=== PATIENT | female | born 2000 | race Caucasian/White ===

== ENCOUNTER 2023-07-15 04:18 | Inpatient (IN) ==
[2023-07-15] MEDS ORDERED: LIDOCAINE 1% LOCAL 20 ML VIAL INFIL PRN (05:02)
[2023-07-15] MEDS ORDERED: OXYTOCIN 30 UNITS/NSS 30 UNITS/500 ML BAG IV PRN ×3 (05:02→11:02)
[2023-07-15] MEDS ORDERED: ceFAZolin 2000MG 2,000 MG/15 ML SYR IV STA (05:10)
--- NOTE | 2023-07-15 05:20 | History & Physical Report ---
Date of Service July 15, 2023 Assessment & Plan (1) Supervision of normal intrauterine in primigravida: Plan: IUP at term with SPROM for clear fluid and spontaneous onset of labor GBS (+) amoxicillin causes hives so will use Ancef instead for prophylaxis epidural analgesia once labs are resulted anticipate vaginal Admission and Anticipated Discharge Date Admission Date: July 15, 2023 History of Present Illness Primary Care Provider: Roxie Ward Ana Paula Patient is a 22 yo female EDC [birth year] who presents in with SPROM for clear fluid and spontaneous onset of labor. GBS (+) otherwise uncomplicated. Allergies Allergy/AdvReac Type Severity Reaction Status Date / Time amoxicillin Allergy Hives Verified 07/12/23 09:48 Home Medications Medication Instructions Recorded Confirmed Type escitalopram oxalate 20 mg tablet 20 mg PO DAILY 11/28/22 07/15/23 History (Lexapro) vitamin with calcium 1 tab PO DAILY 03/06/23 07/15/23 History no.72-iron 27 mg-folic acid 1 mg tablet (WesTab Plus) ferrous sulfate 325 mg (65 mg 325 mg PO DAILY 07/14/23 07/15/23 History iron) tablet (Iron (ferrous sulfate)) Patient History Medical History Anxiety Depression Family History Father Cancer Social History Smoking Status: Never smoker Second Hand Exposure: No; Do You Dip or Chew Tobacco: No; Hx Alcohol Use: No Hx Substance Use: No Preferred Language: Yakut Communication Ability: Effective Supervisor Lime Required: No Beliefs That Will Affect Care: None marital status: Single marital status details: Jada MOM [phone] Current Living Situation: Significant Other Current Living Situation Comment: Lives with Boyfriend and one dog. current occupational status: employed current occupation: Auto Service Mechanic Other Information That Helps Us Care for You: No Feels Safe at Home: Yes Safety Concerns: Feels Safe At This Time Assistive Devices: None and Glasses Review of Systems All systems reviewed & are unremarkable except as noted in HPI & below Physical Exam Constitutional: WD/WN, vitals as above Psychiatric: A+Ox3, euthymic affect Genitourinary: OB Exam Abdomen: + vertex, + estimated weight (7-8 pounds) and + regular contractions Manual OB Exam: + cervical dilation 4 cm (4-5cm), + cervical effacement 100%, + station -1 and + amniotic fluid clear OB Exam Monitor Tracing: + external FHT monitor used, + external uterine monitor used, + category I, + normal FHT variability and + early decelerations present Results & Data Vital Signs (Past 12 Hours) Vital Signs Temp Pulse BP Pulse Ox 07/15/23 05:13 78 100 07/15/23 05:08 84 100 07/15/23 04:46 98.1 F 79 125/60 07/15/23 04:45 79 125/60 Code Status & VTE Plan VTE Prophylaxis Plan VTE Prophylaxis will be ordered: No Coding Level of Care Code None Diagnoses Supervision of normal intrauterine in primigravida Z34.00
[2023-07-15] MEDS: LACTATED RINGER'S 1,000 ML IV PRN ×2 (05:33→07:45)
[2023-07-15] MEDS ORDERED: BUPIVACAINE 0.25% PF 30 ML VIAL ONE (05:38)
[2023-07-15] MEDS ORDERED: SODIUM CHLORIDE 0.9% PF INJ 10 ML VIAL ONE (05:38)
[2023-07-15] MEDS ORDERED: fentaNYL citrate PF 100 MCG/2 ML VIAL ONE (05:38)
[2023-07-15] MEDS ORDERED: ePHEDrine sulfate 50 MG/ML AMP ONE (05:38)
[2023-07-15] MEDS ORDERED: LIDOCAINE 2%/EPINEPHRINE 1:200,000 20 ML PF ONE (05:38)
[2023-07-15] MEDS ORDERED: fentANYL 2 MCG/ML BUPIVacaine 0.125%-NSS 100ML BAG ONE (05:38)
[2023-07-15 05:52] LABS: Hematocrit (blood only) 34.6 % (37.0-47.0); Hemoglobin 11.5 g/dl (12.0-16.0); Mean Corpuscular Hemoglobin 26.1 pg (25.0-34.0); Mean Corpuscular Hgb Conc 33.2 g/dL (32.0-36.0); Mean Corpuscular Volume 78.6 fL (80.0-100.0); Mean Platelet Volume 9.8 fL (9.4-12.4); Platelet Count 233 K/uL (130-400); RDW Coefficient of Variation 14.2 % (11.5-14.5); RDW Standard Deviation 40.5 fL (36.4-46.3); White Blood Count 15.22 K/ul (4.8-10.8)
[2023-07-15] MEDS ORDERED: ePHEDrine sulfate 50 MG/ML AMP IV PRN (06:36)
[2023-07-15] MEDS ORDERED: fentANYL 2 MCG/ML BUPIVacaine 0.125%-NSS 100ML BAG EPI PRN (06:36)
[2023-07-15] MEDS ORDERED: BUPIVACAINE 0.25% PF 30 ML VIAL EPI STA (06:36)
[2023-07-15] MEDS ORDERED: fentaNYL citrate PF 100 MCG/2 ML VIAL EPI STA (06:36)
[2023-07-15] MEDS ORDERED: BUPIVACAINE 0.25% PF 30 ML VIAL EPI PRN (06:36)
[2023-07-15] MEDS ORDERED: SODIUM CHLORIDE 0.9% PF INJ 10 ML VIAL EPI PRN (06:36)
[2023-07-15] MEDS ORDERED: ROPIVACAINE 0.5% PF 5 MG/ML 20 ML VIAL EPI PRN (06:36)
[2023-07-15] MEDS ORDERED: NALBUPHINE HCL 5 MG in SYRINGE 0 ML IV PRN (06:36)
[2023-07-15] MEDS ORDERED: diphenhydrAMINE 50 MG/ML VIAL IV PRN (06:36)
[2023-07-15] MEDS ORDERED: NALOXONE HCL 0.4 MG/1 ML VIAL/CARP IV PRN (06:36)
[2023-07-15] MEDS ORDERED: LIDOCAINE 2% MPF LOCAL 5 ML VIAL EPI PRN (06:36)
[2023-07-15] MEDS ORDERED: NALOXONE HCL 1 MG in SODIUM CHLORIDE 0.9% 1,000 ML IV PRN (06:36)
[2023-07-15] MEDS ORDERED: LIDOCAINE 2%/EPINEPHRINE 1:200,000 20 ML PF EPI STA (06:36)
[2023-07-15] MEDS ORDERED: SODIUM CHLORIDE 0.9% PF INJ 10 ML VIAL EPI STA (06:36)
[2023-07-15] MEDS ORDERED: fentaNYL citrate PF 100 MCG/2 ML VIAL EPI PRN (06:36)
--- NOTE | 2023-07-15 06:36 | Anesthesiology Consultation ---
Date of Service July 15, 2023 Assessment & Plan Chart Review Chart Review: Acceptable Risk for Labor Epidural Consults Requested none History Height/Weight Height: 5 ft 7 in Weight: 85.275 kg Allergies Allergy/AdvReac Type Severity Reaction Status Date / Time amoxicillin Allergy Hives Verified 07/12/23 09:48 Medications Home Medications Medication Instructions Recorded Confirmed Last Taken escitalopram oxalate 20 mg tablet 20 mg PO DAILY 11/28/22 07/15/23 07/14/23 (Lexapro) vitamin with calcium 1 tab PO DAILY 03/06/23 07/15/23 07/13/23 no.72-iron 27 mg-folic acid 1 mg tablet (WesTab Plus) ferrous sulfate 325 mg (65 mg 325 mg PO DAILY 07/14/23 07/15/23 07/11/23 iron) tablet (Iron (ferrous sulfate)) Active Medications Generic Name Dose Route Start Last Admin Trade Name Freq PRN Reason Stop Dose Admin Lactated Ringer's 1,000 mls @ 125 mls/hr 07/15/23 05:02 07/15/23 05:33 Lr IV 07/17/23 05:01 999 mls/hr .Q8H PRN Administration L&D Protocol Protocol Past Medical History Medical History Anxiety Depression Past Family History Family History Father Cancer Social History Smoking Status: Never smoker Do You Dip or Chew Tobacco: No Hx Alcohol Use: No Hx Substance Use: No substance use type: does not use Physical Exam Vital Signs Last Vital Signs Temp 36.7 C 07/15/23 04:46 Pulse 80 07/15/23 06:33 BP 113/57 L 07/15/23 06:33 Pulse Ox 100 07/15/23 06:33 Constitutional WD/WN, vitals as above Psychiatric A+Ox3, euthymic affect Genitourinary OB Exam Abdomen: + vertex, + estimated weight (7-8 pounds) and + regular contractions Manual OB Exam: + cervical dilation + 4 cm (4-5cm), + cervical effacement + 100%, + station + -1 and + amniotic fluid + clear OB Exam Monitor Tracing: + external FHT monitor used, + external uterine monitor used, + category I, + normal FHT variability and + early decelerations present Testing Laboratory Results 07/15/23 05:19
--- NOTE | 2023-07-15 11:00 | Delivery Summary ---
Vaginal Delivery Summary Date of Service July 15, 2023 Vaginal Delivery Summary and 2nd Degree LAC Patient is a 22-year-old 1 P0 female who presented with spontaneous rupture of membranes and then spontaneous onset of contractions. She requested epidural analgesia which was effective. Initially the amniotic fluid was clear and then became moderate meconium stained. She progressed to full dilation with Pitocin augmentation. She pushed effectively over intact perineum for delivery of a viable male infant. During the pushing phase there were episodes of bradycardia to 80 to 90 bpm. After the head was delivered the posterior arm then followed by the anterior shoulder. The rest the infant delivered easily and was placed on the mother's abdomen for further attention and drying. After 1 minute the cord was clamped and cut. He initially had been vigorous but was then taken to the baby bed for further evaluation. After cord blood was obtained the placenta was expressed with a three-vessel cord. Right after the head was delivered there was a small amount of port wine colored fluid. But inspection of the placenta showed no signs of abruption. bleeding was controlled with dilute Pitocin and fundal massage. A second-degree perineal laceration was repaired with 3-0 chromic in the usual fashion. Bilateral superficial labial tears were not bleeding and therefore not repaired. Estimated blood loss was 200 cc. The infant was taken to the nursery for further evaluation and supplemental oxygen. [facility] [place] Vaginal Delivery Charge Delivery Type Details: and 2nd Degree LAC
[2023-07-15] MEDS ORDERED: HYDROCORTISONE ACETATE 25 MG SUPP PR PRN (11:02)
[2023-07-15] MEDS ORDERED: oxyCODONE/ACETAMINOPHEN 5mg/325mg TAB PO PRN (11:02)
[2023-07-15] MEDS ORDERED: BENZOCAINE 20% SPRY 85 APPLN/85 GM CAN EXT PRN (11:02)
[2023-07-15] MEDS ORDERED: DIPHTHERIA/TETANUS/PERTUSSIS Vaccine (Tdap, Age 7+yrs) 0.5mL SYR/VL IM ONE (11:02)
[2023-07-15] MEDS ORDERED: bisacodyL 10 MG SUPP PR PRN (11:02)
[2023-07-15] MEDS ORDERED: ACETAMINOPHEN 325 MG TAB PO PRN (11:02)
[2023-07-15] MEDS ORDERED: ceFAZolin 1000MG 1,000 MG/7.5 ML SYR IV PRN (12:05)
--- NOTE | 2023-07-15 12:45 | Anesthesia Procedure Note ---
Date of Service July 15, 2023 Anesthesia Post Epidural Note Vital Signs Vital Signs: Temp Pulse Resp BP Pulse Ox 37.4 C 125 H 18 107/58 L 98 07/15/23 10:45 07/15/23 12:30 07/15/23 11:30 07/15/23 12:30 07/15/23 10:49 Pain Intensity Lower Medial Abdomen: Pain Intensity: 0 Notes Mental Status: alert / awake / arousable and participated in evaluation Nausea / Vomiting: adequately controlled Pain: adequately controlled Airway Patency, RR, SpO2: stable & adequate BP & HR: stable & adequate Hydration State: stable & adequate Neuraxial Anesthesia: was administered and sensory block is resolving Anesthetic Complications: no major complications apparent Epidural: Removed without complications and With tip intact
[2023-07-15] MEDS: IBUPROFEN 600 MG TAB PO PRN (17:11)
[2023-07-15] MEDS: DOCUSATE SODIUM 100 MG CAP PO SCH (21:23)
[2023-07-16] MEDS: IBUPROFEN 600 MG TAB PO PRN ×3 (02:39→20:37)
[2023-07-16 06:35] LABS: Hematocrit (blood only) 29.5 % (37.0-47.0); Hemoglobin 9.4 g/dl (12.0-16.0); Mean Corpuscular Hgb Conc 31.9 g/dL (32.0-36.0); Mean Corpuscular Volume 81.7 fL (80.0-100.0); Mean Platelet Volume 9.9 fL (9.4-12.4); Platelet Count 194 K/uL (130-400); RDW Coefficient of Variation 14.6 % (11.5-14.5); RDW Standard Deviation 42.5 fL (36.4-46.3); Red Blood Count 3.61 M/uL (4.20-5.40); White Blood Count 12.55 K/ul (4.8-10.8)
--- NOTE | 2023-07-16 07:38 | Obstetrical Progress Note ---
Date of Service July 16, 2023 Assessment & Plan (1) Encounter for care and examination after delivery: satisfactory course continue current care plan Subjective Ambulation: ambulating normally Voiding: no voiding problems Passing Gas:: Yes Diet Tolerance:: regular diet Lochia:: Small Feeding Type:: breast feeding Review of Systems All systems reviewed & are unremarkable except as noted in HPI & below Physical Exam Constitutional WD/WN, vitals as above Psychiatric A+Ox3, euthymic affect Genitourinary OB Exam Abdomen: + fundal height Fundus: + firm and + relation to umbilicus (at U) Results & Data Vital Signs (Past 12 Hours) Vital Signs Temp Pulse Resp BP Pulse Ox O2 Del Method 07/16/23 04:30 97.7 F 68 16 98/66 L 99 Room Air 07/16/23 00:00 97.7 F 82 18 101/67 97 Room Air 07/15/23 20:45 97.7 F 86 18 104/69 98 Room Air
[2023-07-16 08:21] VITALS: O2SAT 98
[2023-07-16] MEDS: ESCITALOPRAM OXALATE 20 MG TAB PO SCH (09:33)
[2023-07-16] MEDS: PRENATAL VITAMIN 1 TAB PO SCH (09:33)
[2023-07-16] MEDS: DOCUSATE SODIUM 100 MG CAP PO SCH ×2 (09:33→20:37)
[2023-07-16] MEDS ORDERED: bisacodyL 5 MG TABEC PO SCH (20:00)
[2023-07-16 23:45] VITALS: RESP 16; TEMP 97.7
[2023-07-17 06:08] LABS: Hematocrit (blood only) 27.8 % (37.0-47.0)
--- NOTE | 2023-07-17 07:32 | Obstetrical Progress Note ---
Date of Service July 17, 2023 Assessment & Plan (1) Encounter for care and examination after delivery: Day #:: 2 Subjective Ambulation: ambulating normally Voiding: no voiding problems Passing Gas:: Yes Diet Tolerance:: regular diet Lochia:: Small Feeding Type:: breast feeding Doing well. Physical Exam Constitutional WD/WN, vitals as above Cardiovascular Extremities: no calf tenderness and no edema Gastrointestinal (Abdomen) soft, nt, nd ff/nt at u Psychiatric A+Ox3, euthymic affect Results & Data Vital Signs (Past 12 Hours) Vital Signs Temp Pulse Resp BP O2 Del Method 07/16/23 23:30 36.5 C 69 16 103/67 Room Air 07/16/23 19:55 36.4 C L 89 18 106/70 Room Air 07/16/23 19:55 Room Air
[2023-07-17 08:25] VITALS: BP 108/72; PULSE 70
[2023-07-17] MEDS: ESCITALOPRAM OXALATE 20 MG TAB PO SCH (09:33)
[2023-07-17] MEDS: PRENATAL VITAMIN 1 TAB PO SCH (09:33)
[2023-07-17] MEDS: IBUPROFEN 600 MG TAB PO PRN (09:33)
== END 2023-07-17 14:45 | disposition home or self-care (01) | DRG 807 ==
LOC: OPB 04:18 → 4S1 04:23 → 4E2 15:06